=== PATIENT | female | born 1970 | race Caucasian/White ===

== ENCOUNTER 2018-04-21 13:18 | Emergency (ER) | payer OTHER ==
[~2018-04-21] VITALS: Ht 172.7 cm; Wt 81.8 kg
[~2018-04-21 13:18] MED LIST: AZIT250T PO; CYCL-1 PO; DIAZ5TAB PO; HYDR-4383 PO
[2018-04-21 13:33] VITALS: BP 146/89
[2018-04-21] MEDS ORDERED: LIDOcaine 1.5% w/epinephrine 1:200,000 5ml ampul IJ ONE (14:20)
[2018-04-21] MEDS ORDERED: LIDOcaine 1% w/epiNEPHrine 1:200,000 30ml vial IJ ONE (14:25)
--- NOTE | 2018-04-21 14:56 | NUR ---
PT SEEN AND DC'D BY PROVIDER
== END 2018-04-21 14:55 | disposition home or self-care (01) ==
LOC: ER 13:19 → EEVIPCON 13:19 → ER 14:55
DX: L72.3 Sebaceous cyst (principal); F41.9 Anxiety disorder, unspecified
CPT/HCPCS: 10060; 99283; J3490

== ENCOUNTER → 2018-11-04 | Emergency (ER) | payer OTHER ==
[~2018-11-04] VITALS: Ht 172.7 cm; Wt 79.0 kg
[~2018-11-04] MED LIST changes: +BENZ-16 PO; +LEVO750T21 PO
[2018-11-04 01:26] VITALS: BP 154/94
== END | disposition home or self-care (01) ==
LOC: ER 00:56
DX: R05 Cough (principal); R51 Headache; R09.89 Other specified symptoms and signs involving the circulatory and respiratory systems; F41.9 Anxiety disorder, unspecified; F10.99 Alcohol use, unspecified with unspecified alcohol-induced disorder; E07.9 Disorder of thyroid, unspecified; Z79.899 Other long term (current) drug therapy; Y90.9 Presence of alcohol in blood, level not specified
CPT/HCPCS: 71045; 93005; 99283

== ENCOUNTER 2018-11-07 13:27 | Outpatient (CLI) | payer OTHER ==
[2018-11-07] MEDS ORDERED: BARIUM SULFATE 340 ML SUSP.RECON***PROCEDURE AREA ONLY**DONT ENTER PO ONE (14:00)
== END 2018-11-07 23:59 | disposition home or self-care (01) ==
LOC: RAD 13:27
PROVIDERS: ATTEND Family Medicine
DX: R13.12 Dysphagia, oropharyngeal phase (principal); E04.1 Nontoxic single thyroid nodule
CPT/HCPCS: 74220; 76536

== ENCOUNTER 2019-02-20 15:59 | Outpatient (CLI) | payer OTHER ==
[~2019-02-20 15:59] MED LIST changes: -BENZ-16 PO; -LEVO750T21 PO
[2019-02-20 16:45] LABS: HEMOGLOBIN A1C 5.7 % (4.5-6.2)
[2019-02-20 16:59] LABS: ALANINE AMINOTRANSFERASE 83 U/L (12-78); ALBUMIN 3.6 G/DL (3.4-5.0); ALBUMIN/GLOBULIN RATIO 0.8 (1.1-1.5); ALKALINE PHOSPHATASE 67 IU/L (46-116); ANION GAP 10 (8-16); ASPARTATE AMINO TRANSFERASE 57 U/L (10-37); BILIRUBIN,TOTAL 0.5 MG/DL (0.1-1.0); BLOOD UREA NITROGEN 11 MG/DL (7-18); CALCIUM 8.9 MG/DL (8.5-10.1); CHLORIDE 105 MMOL/L (99-107); CHOL/HDL RATIO 4.3 (0.00-4.99); CHOLESTEROL 173 MG/DL (0-200); GLUCOSE 105 MG/DL (70-104); HDL CHOLESTEROL 40 MG/DL (35-60); LDL CHOLESTEROL 121 MG/DL (50-100); POTASSIUM 3.9 MMOL/L (3.5-5.1); SODIUM 139 MMOL/L (135-145); TOTAL CARBON DIOXIDE 24.2 MMOL/L (24-32); TOTAL PROTEIN 8.3 G/DL (6.4-8.2); TRIGLYCERIDES 93 MG/DL (20-135); eGFR 59 ML/MIN
[2019-02-20 17:41] LABS: BASOPHILS # (AUTO) 0.1 X10'3 (0-0.2); BASOPHILS % (AUTO) 1.3 % (0-1); EOSINOPHILS # (AUTO) 0.3 X10'3 (0-0.9); EOSINOPHILS % (AUTO) 3.6 % (0-6); HEMATOCRIT 42.1 % (35.0-45.0); LYMPHOCYTES # (AUTO) 1.9 X10'3 (1.1-4.8); LYMPHOCYTES % (AUTO) 23.1 % (21-51); MEAN CORPUSCULAR HEMOGLOBIN 26.7 PG (27.0-31.0); MEAN CORPUSCULAR HGB CONC 33.2 g/dL (33.0-36.5); MEAN CORPUSCULAR VOLUME 80.4 FL (78-98); MEAN PLATELET VOLUME 8.6 FL (7.4-10.4); MONOCYTES # (AUTO) 0.9 X10'3 (0-0.9); PLATELET COUNT 396 X10'3 (140-440); RED BLOOD COUNT 5.24 X10'6 (4.20-5.60); RED CELL DISTRIBUTION WIDTH 14.9 % (11.5-14.5); WHITE BLOOD COUNT 8.2 X10'3 (4.5-11.0)
== END 2019-02-20 23:59 | disposition home or self-care (01) ==
LOC: LAB 15:59
PROVIDERS: ATTEND Family Medicine
DX: Z00.00 Encounter for general adult medical examination without abnormal findings (principal); D64.9 Anemia, unspecified; E03.9 Hypothyroidism, unspecified; E11.9 Type 2 diabetes mellitus without complications; R79.9 Abnormal finding of blood chemistry, unspecified
CPT/HCPCS: 36415; 80053; 80061; 83036; 84443; 85025; 86038

== ENCOUNTER 2019-03-26 15:12 | Outpatient (CLI) | payer OTHER ==
[2019-03-26 16:50] LABS: C-REACTIVE PROTEIN 0.28 MG/DL (0.0-0.5)
[2019-03-26 18:11] LABS: RHEUM FACTOR QUAL REFLEX TITER NEGATIVE (Neg)
== END 2019-03-26 23:59 | disposition home or self-care (01) ==
LOC: RAD 15:12
PROVIDERS: ATTEND Family Medicine
DX: R74.8 Abnormal levels of other serum enzymes (principal); Z90.49 Acquired absence of other specified parts of digestive tract
CPT/HCPCS: 36415; 76700; 85651; 86140; 86200; 86430

== ENCOUNTER 2019-04-30 11:20 | Outpatient (CLI) | payer OTHER ==
[~2019-04-30 11:20] MED LIST changes: -ESCI20TA PO
[2019-04-30 12:35] LABS: RHEUM FACTOR QUAL REFLEX TITER NEGATIVE (Neg)
[2019-04-30] MEDS ORDERED: ESCI20TA PO (12:43)
== END 2019-04-30 23:59 | disposition home or self-care (01) ==
LOC: LAB 11:20
PROVIDERS: ATTEND Family Medicine
DX: M12.9 Arthropathy, unspecified (principal); R79.9 Abnormal finding of blood chemistry, unspecified
CPT/HCPCS: 36415; 85651; 86140; 86200; 86430

== ENCOUNTER → 2019-04-30 | Day surgery (SDC) | payer OTHER ==
[~2019-04-30] MED LIST changes: +ESCI20TA PO
[2019-04-30 12:30] VITALS: BP 146/94
[2019-04-30 15:00] VITALS: BP 138/67
== END | disposition home or self-care (01) ==
LOC: SSTAY O 11:36
PROVIDERS: ATTEND Radiology Diagnostic Radiology
DX: E04.1 Nontoxic single thyroid nodule (principal); Z80.9 Family history of malignant neoplasm, unspecified; R05 Cough
CPT/HCPCS: 10005; 60100; 76942

== ENCOUNTER 2019-06-14 13:03 | Observation (INO) | payer OTHER ==
[2019-06-11 14:23] LABS: BASOPHILS # (AUTO) 0.1 X10'3 (0-0.2); EOSINOPHILS # (AUTO) 0.4 X10'3 (0-0.9); EOSINOPHILS % (AUTO) 4.7 % (0-6); LYMPHOCYTES # (AUTO) 2.7 X10'3 (1.1-4.8); LYMPHOCYTES % (AUTO) 33.9 % (21-51); MEAN CORPUSCULAR HEMOGLOBIN 26.4 PG (27.0-31.0); MEAN CORPUSCULAR HGB CONC 32.7 g/dL (33.0-36.5); MEAN CORPUSCULAR VOLUME 80.6 FL (78-98); MEAN PLATELET VOLUME 8.4 FL (7.4-10.4); MONOCYTES # (AUTO) 0.9 X10'3 (0-0.9); NEUTROPHILS # (AUTO) 3.8 X10'3 (1.8-7.7); NEUTROPHILS % (AUTO) 48.4 % (42-75); PRE OP HEMATOCRIT 43.1 % (35.0-45.0); PRE OP HEMOGLOBIN 14.1 g/dL (12.0-16.0); PRE OP PLATELET COUNT 359 X10'3 (140-440); RED BLOOD COUNT 5.35 X10'6 (4.20-5.60)
[2019-06-11 14:35] LABS: ALBUMIN 3.8 G/DL (3.4-5.0); ALBUMIN/GLOBULIN RATIO 0.9 (1.1-1.5); ALKALINE PHOSPHATASE 77 IU/L (46-116); BLOOD UREA NITROGEN 11 MG/DL (7-18); BUN/CREATININE RATIO 11.3 (6.6-38.0); CALCIUM 9.1 MG/DL (8.5-10.1); CHLORIDE 102 MMOL/L (99-107); CREATININE 0.97 MG/DL (0.40-0.90); PRE OP ANION GAP 6 (8-16); PRE OP AST 50 U/L (10-37); PRE OP BILIRUB, TOTAL 0.2 MG/DL (0.0-1.0); PRE OP GLUCOSE 94 MG/DL (70-104); PRE OP POTASSIUM 3.9 MMOL/L (3.4-5.1); PRE OP SODIUM 140 MMOL/L (135-145); TOTAL CARBON DIOXIDE 32.5 MMOL/L (24-32); eGFR 61 ML/MIN
[2019-06-11 14:43] LABS: PRE OP ALT 82 U/L (30-65)
[2019-06-11 14:45] LABS: HCG SERUM QL NEGATIVE
[~2019-06-14] VITALS: Ht 172.7 cm; Wt 79.4 kg
[2019-06-14] VITALS (16 sets, daily range): BP systolic 110–151; BP diastolic 72–99
[~2019-06-14 13:03] MED LIST changes: +ASPI-130; -AZIT250T PO; -DIAZ5TAB PO; +ESCI20TA PO; -HYDR-4383 PO; +IBUP-1984 PO; +MELA5TAB12 PO; +famotidine 20mg tablet PO ONE; +ringers solution, lacted 1,000 ML IV SCH
[2019-06-14] MEDS ORDERED: LIDOcaine 1% W/epiNEPHrine 1:100,000 20ml vial ONE (13:48)
[2019-06-14] MEDS ORDERED: LIDOcaine 1% W/epiNEPHrine 1:100,000 20ml vial IJ ONE (14:00)
[2019-06-14] MEDS ORDERED: ringers solution, lacted 1,000 ML IV SCH (14:26)
[2019-06-14] MEDS ORDERED: ondansetron/PF 4mg/2ml inj IV PRN ×2 (14:30→17:40)
[2019-06-14] MEDS ORDERED: hydrALAZINE 20mg/ml inj. IV PRN ×2 (14:30→17:40)
[2019-06-14] MEDS ORDERED: morphine 2 MG/ML inj. syringe IV PRN (14:30)
[2019-06-14] MEDS ORDERED: fentaNYL/PF 50MCG/1 ML 2ML syringe IV PRN ×2 (14:30)
[2019-06-14] MEDS ORDERED: morphine 4 MG/ML inj SYRINge IV PRN ×2 (14:30→17:40)
[2019-06-14] MEDS ORDERED: labetalol 20mg/4ml (5mg/ml) syringe IV PRN (14:30)
[2019-06-14] MEDS ORDERED: cloNIDine hcl/PF 100mcg/ml inj ONE (15:30)
[2019-06-14] MEDS ORDERED: ondansetron/PF 4mg/2ml inj ONE (15:30)
[2019-06-14] MEDS ORDERED: sevoflurane 250ml liquid IH ONE (15:30)
[2019-06-14] MEDS ORDERED: midazolam 2 mg/2 ml injection ONE (15:31)
[2019-06-14] MEDS ORDERED: fentaNYL/PF 50MCG/1 ML 2ML syringe ONE (15:31)
[2019-06-14] MEDS ORDERED: succinylcholine 20mg/ml inj IV ONE (15:55)
[2019-06-14] MEDS ORDERED: LIDOcaine 2% (20mg/ml) 5ml vial ONE (15:56)
[2019-06-14] MEDS ORDERED: propofol inj 20 ML IV ONE (15:56)
[2019-06-14] MEDS ORDERED: phenylephrine 10mg/ml inj. ONE (15:57)
[2019-06-14] MEDS ORDERED: labetalol 20mg/4ml (5mg/ml) syringe IV ONE (17:11)
[2019-06-14] MEDS ORDERED: bacitracin 15gm ointment TP ONE (17:13)
--- NOTE | 2019-06-14 17:25 | NUR ---
Received from OR via SURGICAL BED , accompanied by Anesthesiologist CLAIRE and report given by Anesthesiolgist. PATIENT WITH 20G PIV IN RIGHT UE RUNNING LR AT 100. ANTERIOR NECK DRESSING IS CDI AND JAYMIE DRAIN IS INTACT AND MAINTAINING SUCTION. VSS . Addendum: 06/14/19 at 1735 by Ganesh Barrett RN, RN Amended: Links added.
[2019-06-14] MEDS ORDERED: temazepam 15mg capsule PO PRN (17:40)
[2019-06-14] MEDS ORDERED: diphenhydrAMINE 25mg capsule PO PRN ×2 (17:40)
[2019-06-14] MEDS ORDERED: proCHLORperazine 10 MG/2 ml inj IV PRN (17:40)
[2019-06-14] MEDS ORDERED: mag hydrox/Alum hydrox/simeth 30ml oral suspension PO PRN (17:40)
[2019-06-14] MEDS ORDERED: HYDROcodone/acetaminophen 10/325mg tab PO PRN (17:40)
[2019-06-14] MEDS ORDERED: acetaminophen 325mg tablet PO PRN ×2 (17:40)
--- NOTE | 2019-06-14 18:15 | NUR ---
Patient in room ORTHO 4016. I have received report from LUIS Andersen and had the opportunity to ask questions and assume patient care.
[2019-06-14] MEDS: potassium cl 20mEq in 1/2 NS 1,000 ML IV SCH (19:37)
[2019-06-14] MEDS: docusate sod 100mg capsule PO SCH (19:39)
[2019-06-14] MEDS: famotidine/PF 10 mg/ml inj IV SCH (19:42)
[2019-06-14] MEDS: HYDROcodone/acetaminophen 10/325mg tab PO PRN (19:42)
[2019-06-14] MEDS: calcium carbonate 500mg tablet PO SCH (19:42)
[2019-06-14] MEDS ORDERED: Melatonin 3mg tablet PO SCH (21:00)
[2019-06-15] MEDS: HYDROcodone/acetaminophen 10/325mg tab PO PRN ×2 (01:44→08:06)
[2019-06-15 02:00] VITALS: BP 114/56
[2019-06-15 02:15] VITALS: BP 130/86
--- NOTE | 2019-06-15 06:30 | NUR ---
Problems reprioritized. Patient report given, questions answered & plan of care reviewed with LUIS Junior.
--- NOTE | 2019-06-15 06:30 | NUR ---
Patient in room ORTHO 4016. I have received report from Jen SMITH and had the opportunity to ask questions and assume patient care.
[2019-06-15 06:58] VITALS: BP 119/70
[2019-06-15] MEDS: famotidine/PF 10 mg/ml inj IV SCH (07:59)
[2019-06-15] MEDS: potassium cl 20mEq in 1/2 NS 1,000 ML IV SCH (08:00)
[2019-06-15] MEDS ORDERED: ESCITALOPRAM OXALATE 5 MG TABLET PO SCH (08:00)
[2019-06-15] MEDS: cyclobenzaprine 10mg tablet PO SCH ×2 (08:03)
[2019-06-15] MEDS: calcium carbonate 500mg tablet PO SCH (08:03)
[2019-06-15] MEDS: docusate sod 100mg capsule PO SCH (08:06)
[2019-06-15 10:00] VITALS: BP 135/68
--- NOTE | 2019-06-15 11:25 | NUR ---
Patient discharged at this time in wheel chair. I gave her the copy of the DC instructions that were in the chart from Dr. Mac. Patient has a follow-up with him on Tuesday. I told her she could have drain removed today or Tuesday with the Dr, and she said she would do it Tuesday. She was able to eat without to much difficulty before she left.
== END 2019-06-15 11:26 | disposition home or self-care (01) ==
LOC: PAS 13:03 → ORTHO 4S 17:39
PROVIDERS: ADMIT Otolaryngology; ATTEND Otolaryngology
DX: E06.5 Other chronic thyroiditis (principal)
CPT/HCPCS: 36415; 60500; 80053; 84703; 85025; 93005; 96374; 96376; G0378; J0330; J0735; J2001; J2250; J2370; J2405; J2704; J3010; J3490; J7120; A4215; A4618; A6250; A6258; A7000; J3480

== ENCOUNTER 2019-08-15 15:51 | Outpatient (CLI) | payer OTHER ==
[~2019-08-15 15:51] MED LIST changes: -ASPI-130; -IBUP-1984 PO; -famotidine 20mg tablet PO ONE; -ringers solution, lacted 1,000 ML IV SCH
== END 2019-08-15 23:59 | disposition home or self-care (01) ==
LOC: LAB 15:51
PROVIDERS: ATTEND Otolaryngology
DX: E04.1 Nontoxic single thyroid nodule (principal); E06.3 Autoimmune thyroiditis
CPT/HCPCS: 36415

== ENCOUNTER 2019-09-05 14:15 | Outpatient (CLI) | payer OTHER | END 2019-09-05 23:59 | disposition home or self-care (01) | LOC: LAB 14:15 | PROVIDERS: ATTEND Otolaryngology | DX: E04.1 Nontoxic single thyroid nodule (principal); E06.3 Autoimmune thyroiditis | CPT/HCPCS: 36415; 84439; 84443 ==

== ENCOUNTER 2019-10-31 15:46 | Outpatient (CLI) | payer BC, OTHER | END 2019-10-31 23:59 | disposition home or self-care (01) | LOC: LAB 15:46 | PROVIDERS: ATTEND Otolaryngology | DX: E04.1 Nontoxic single thyroid nodule (principal); E06.3 Autoimmune thyroiditis | CPT/HCPCS: 36415; 84439; 84443 ==

== ENCOUNTER 2020-01-02 15:27 | Outpatient (CLI) | payer BC | END 2020-01-02 23:59 | disposition home or self-care (01) | LOC: LAB 15:27 | PROVIDERS: ATTEND Physician Assistant | DX: E04.1 Nontoxic single thyroid nodule (principal); E06.3 Autoimmune thyroiditis; E07.89 Other specified disorders of thyroid | CPT/HCPCS: 36415; 84439; 84443; 84479 ==

== ENCOUNTER 2020-01-30 23:51 | Emergency (ER) | payer BC ==
[~2020-01-30] VITALS: Ht 172.7 cm; Wt 77.0 kg
[2020-01-30 23:55] VITALS: BP 153/100
== END 2020-01-31 01:06 | disposition home or self-care (01) ==
LOC: ER 23:52 → EEVIPCON 23:52 → ER 01-31 01:06
DX: S90.111A Contusion of right great toe without damage to nail, initial encounter (principal); I10 Essential (primary) hypertension; F41.9 Anxiety disorder, unspecified; F32.9 Major depressive disorder, single episode, unspecified; Z72.89 Other problems related to lifestyle; Z79.899 Other long term (current) drug therapy; W21.02XA Struck by soccer ball, initial encounter; Y93.66 Activity, soccer; Y92.89 Other specified places as the place of occurrence of the external cause; Y99.8 Other external cause status
CPT/HCPCS: 73660; 99283

== ENCOUNTER 2020-03-05 15:10 | Outpatient (CLI) | payer BC | END 2020-03-05 23:59 | disposition home or self-care (01) | LOC: LAB 15:10 | PROVIDERS: ATTEND Nurse Practitioner Family | DX: Z13.220 Encounter for screening for lipoid disorders (principal) | CPT/HCPCS: 36415; 84132 ==

== ENCOUNTER 2020-05-19 15:22 | Outpatient (CLI) | payer BC | END 2020-05-19 23:59 | disposition home or self-care (01) | LOC: RAD 15:22 | PROVIDERS: ATTEND Nurse Practitioner | DX: E87.6 Hypokalemia (principal) | CPT/HCPCS: 36415; 84132 ==

== ENCOUNTER 2020-09-24 18:41 | Emergency (ER) | payer BC ==
[~2020-09-24] VITALS: Ht 172.7 cm; Wt 81.8 kg
[2020-09-24 18:45] VITALS: BP 126/94
[2020-09-24] MEDS ORDERED: triamcinolone acetonide 40mg/ml inj IM ONE (19:30)
[2020-09-24] MEDS ORDERED: triamcinolone acet 0.1% cream 15gm TP STA (19:30)
[2020-09-24] MEDS ORDERED: KEN0.1O TP (19:52)
== END 2020-09-24 20:01 | disposition home or self-care (01) ==
LOC: ER 18:41
DX: L23.9 Allergic contact dermatitis, unspecified cause (principal); I10 Essential (primary) hypertension; F41.9 Anxiety disorder, unspecified; F32.9 Major depressive disorder, single episode, unspecified; Z72.89 Other problems related to lifestyle; Z79.899 Other long term (current) drug therapy
CPT/HCPCS: 96372; 99283; J3301

== ENCOUNTER 2020-10-28 15:42 | Outpatient (CLI) | payer BC ==
[2020-10-28 16:31] LABS: BASOPHILS # (AUTO) 0.1 X10'3 (0-0.2); BASOPHILS % (AUTO) 0.9 % (0-1); EOSINOPHILS # (AUTO) 0.3 X10'3 (0-0.9); EOSINOPHILS % (AUTO) 3.4 % (0-6); HEMATOCRIT 46.3 % (35.0-45.0); HEMOGLOBIN 15.2 g/dl (12.0-16.0); MEAN CORPUSCULAR HEMOGLOBIN 28.3 PG (27.0-31.0); MEAN CORPUSCULAR HGB CONC 32.9 g/dL (33.0-36.5); MEAN PLATELET VOLUME 8.1 FL (7.4-10.4); MONOCYTES # (AUTO) 0.7 X10'3 (0-0.9); MONOCYTES % (AUTO) 9.9 % (2-12); NEUTROPHILS # (AUTO) 4.4 X10'3 (1.8-7.7); NEUTROPHILS % (AUTO) 58.8 % (42-75); PLATELET COUNT 350 X10'3 (140-440); RED BLOOD COUNT 5.38 X10'6 (4.20-5.60); RED CELL DISTRIBUTION WIDTH 14.4 % (11.5-14.5); WHITE BLOOD COUNT 7.4 X10'3 (4.5-11.0)
[2020-10-28 16:47] LABS: HEMOGLOBIN A1C 5.6 % (4.5-6.2)
[2020-10-28 16:55] LABS: ALANINE AMINOTRANSFERASE 42 U/L (12-78); ALBUMIN 3.8 G/DL (3.4-5.0); ALBUMIN/GLOBULIN RATIO 0.9 (1.1-1.5); ALKALINE PHOSPHATASE 58 IU/L (46-116); ANION GAP 7 (8-16); ASPARTATE AMINO TRANSFERASE 27 U/L (10-37); BILIRUBIN,TOTAL 0.4 MG/DL (0.1-1.0); BLOOD UREA NITROGEN 13 MG/DL (7-18); BUN/CREATININE RATIO 12.1 (6.6-38.0); CALCIUM 9.1 MG/DL (8.5-10.1); CHLORIDE 104 MMOL/L (99-107); CHOL/HDL RATIO 4.2 (0.00-4.99); CHOLESTEROL 179 MG/DL (0-200); CREATININE 1.07 MG/DL (0.40-0.90); GLUCOSE 103 MG/DL (70-104); HDL CHOLESTEROL 43 MG/DL (35-60); LDL CHOLESTEROL 119 MG/DL (50-100); POTASSIUM 4.1 MMOL/L (3.5-5.1); SODIUM 141 MMOL/L (135-145); TOTAL CARBON DIOXIDE 29.8 MMOL/L (24-32); TRIGLYCERIDES 102 MG/DL (20-135); eGFR 54 ML/MIN
[2020-10-30 12:45] LABS: ESTRADIOL 26.5 pg/mL (.); FSH, SERUM 48.1 mIU/mL (.); PROGESTERONE 0.1 ng/mL (.)
== END 2020-10-28 23:59 | disposition home or self-care (01) ==
LOC: LAB 15:42
PROVIDERS: ATTEND Family Medicine
DX: Z00.00 Encounter for general adult medical examination without abnormal findings (principal); N95.9 Unspecified menopausal and perimenopausal disorder; R79.9 Abnormal finding of blood chemistry, unspecified; D64.9 Anemia, unspecified; E11.9 Type 2 diabetes mellitus without complications; E78.00 Pure hypercholesterolemia, unspecified; E03.9 Hypothyroidism, unspecified; E55.9 Vitamin D deficiency, unspecified
CPT/HCPCS: 36415; 80053; 80061; 82306; 82670; 83001; 83002; 83036; 84144; 84402; 84403; 84443; 85025

== ENCOUNTER → 2020-11-29 | Emergency (ER) | payer BC ==
[~2020-11-29] VITALS: Ht 172.7 cm; Wt 80.0 kg
[2020-11-29 20:27] VITALS: BP 136/84
== END | disposition home or self-care (01) ==
LOC: ER 20:23
DX: B34.9 Viral infection, unspecified (principal); Z20.822 Contact with and (suspected) exposure to COVID-19; I10 Essential (primary) hypertension; E07.9 Disorder of thyroid, unspecified; Z87.81 Personal history of (healed) traumatic fracture; Z79.899 Other long term (current) drug therapy; Z72.89 Other problems related to lifestyle
CPT/HCPCS: 87635; 99283; C9803

== ENCOUNTER 2021-08-12 21:58 | Emergency (ER) | payer BC ==
[~2021-08-12] VITALS: Ht 172.7 cm; Wt 70.5 kg
[2021-08-12 22:43] VITALS: BP 148/98
== END 2021-08-12 22:44 | disposition home or self-care (01) ==
LOC: ER 21:59
DX: L23.9 Allergic contact dermatitis, unspecified cause (principal); L73.9 Follicular disorder, unspecified; I10 Essential (primary) hypertension; Z87.81 Personal history of (healed) traumatic fracture; Z72.89 Other problems related to lifestyle; Z79.899 Other long term (current) drug therapy; Z98.890 Other specified postprocedural states
CPT/HCPCS: 99282

== ENCOUNTER 2022-10-17 06:57 | Emergency (ER) | payer BC ==
[~2022-10-17] VITALS: Ht 172.7 cm; Wt 84.1 kg
[2022-10-17 07:11] VITALS: BP 144/84
[2022-10-17] MEDS ORDERED: dexamethasone sod phosphate 10mg/ml inj PO STA (07:32)
[2022-10-17] MEDS ORDERED: PRED20TA PO (07:34)
[2022-10-17] MEDS ORDERED: AZIT-164 PO (07:34)
[2022-10-17] MEDS ORDERED: azithromycin 250mg tablet PO ONE (07:35)
[2022-10-17] MEDS ORDERED: BENZ-38 PO (07:38)
== END 2022-10-17 08:11 | disposition home or self-care (01) ==
LOC: ER 06:58
DX: J20.9 Acute bronchitis, unspecified (principal); I10 Essential (primary) hypertension
CPT/HCPCS: 99283; J1100

== ENCOUNTER 2022-12-03 20:46 | Emergency (ER) | payer BC ==
[~2022-12-03] VITALS: Ht 172.7 cm; Wt 86.4 kg
[2022-12-03 21:09] VITALS: BP 148/96; PULSE 83; RESP 14; TEMP 98.1; O2SAT 97
[2022-12-03 22:05] LABS: BASOPHILS # (AUTO) 0.1 X10'3 (0-0.2); EOSINOPHILS # (AUTO) 0.4 X10'3 (0-0.9); EOSINOPHILS % (AUTO) 4.6 % (0-6); HEMATOCRIT 44.2 % (35.0-45.0); HEMOGLOBIN 14.8 g/dl (12.0-16.0); LYMPHOCYTES # (AUTO) 2.1 X10'3 (1.1-4.8); LYMPHOCYTES % (AUTO) 26.9 % (21-51); MEAN CORPUSCULAR HEMOGLOBIN 28.8 PG (27.0-31.0); MEAN CORPUSCULAR HGB CONC 33.6 g/dL (33.0-36.5); MEAN CORPUSCULAR VOLUME 85.7 FL (78-98); MEAN PLATELET VOLUME 8.3 FL (7.4-10.4); MONOCYTES # (AUTO) 0.8 X10'3 (0-0.9); MONOCYTES % (AUTO) 9.9 % (2-12); NEUTROPHILS # (AUTO) 4.5 X10'3 (1.8-7.7); NEUTROPHILS % (AUTO) 57.6 % (42-75); PLATELET COUNT 295 X10'3 (140-440); RED BLOOD COUNT 5.16 X10'6 (4.20-5.60); RED CELL DISTRIBUTION WIDTH 14.1 % (11.5-14.5); WHITE BLOOD COUNT 7.8 X10'3 (4.5-11.0)
[2022-12-03 22:35] LABS: ALANINE AMINOTRANSFERASE 88 U/L (12-78); ALBUMIN 3.6 G/DL (3.4-5.0); ALBUMIN/GLOBULIN RATIO 0.9 (1.1-1.5); ALKALINE PHOSPHATASE 67 IU/L (46-116); ANION GAP 9 (8-16); ASPARTATE AMINO TRANSFERASE 50 U/L (10-37); BILIRUBIN,TOTAL 0.2 MG/DL (0.1-1.0); BLOOD UREA NITROGEN 14 MG/DL (7-18); BUN/CREATININE RATIO 12.6 (10.0-20.0); C-REACTIVE PROTEIN 0.14 MG/DL (0.0-0.5); CALCIUM 9.4 MG/DL (8.5-10.1); CHLORIDE 104 MMOL/L (99-107); CREATININE 1.11 MG/DL (0.40-0.90); GLUCOSE 114 MG/DL (70-104); MAGNESIUM 2.1 MG/DL (1.5-2.4); POTASSIUM 4.4 MMOL/L (3.5-5.1); SODIUM 140 MMOL/L (135-145); TOTAL CARBON DIOXIDE 26.7 MMOL/L (24-32); TOTAL PROTEIN 7.7 G/DL (6.4-8.2); eCRCL 58 ML/MIN; eGFR 51 ML/MIN
[2022-12-03] MEDS ORDERED: TRIA15CR61 TOP (23:00)
--- NOTE | 2022-12-03 23:18 | NUR ---
nuclear chemistry technician didn't run the rest of the labs: informed him to do so now.
[2022-12-04 01:07] LABS: RHEUM FACTOR QUAL REFLEX TITER NEGATIVE (Neg)
== END 2022-12-03 23:50 | disposition home or self-care (01) ==
LOC: ER 20:46
DX: L23.5 Allergic contact dermatitis due to other chemical products (principal); I10 Essential (primary) hypertension; F31.9 Bipolar disorder, unspecified; E03.9 Hypothyroidism, unspecified; Z79.899 Other long term (current) drug therapy
CPT/HCPCS: 36415; 71045; 80053; 83735; 84145; 85025; 85651; 86038; 86060; 86140; 86430; 99284